=== PATIENT | female | born 1955 | race Hispanic/Latino ===

== ENCOUNTER 2017-12-15 22:59 | Emergency (ER) | payer MEDICAID ==
[~2017-12-15] VITALS: Ht 152.4 cm; Wt 85.8 kg
[2017-12-16 00:04] LABS: HEMOGLOBIN 14.5 G/DL (11.9-15.5); MCH 28.8 PG (29.0-34.0); MCV 87.5 FL (83-99); PLATELET COUNT 312 K/uL (156-360); RBC DIS.WIDTH-CV 12.4 % (11.8-14.6); RBC DIS.WIDTH-SD 39.9 % (39-53); RED BLOOD COUNT 5.03 M/uL (3.80-5.20); WHITE BLOOD COUNT 7.4 K/uL (4.1-10.2)
[2017-12-16 00:15] LABS: CHLORIDE 101 mEq/L (99-109); POTASSIUM 3.7 mEq/L (3.7-5.4); SODIUM 140 mEq/L (136-147)
[2017-12-16 00:17] LABS: GLUCOSE 94 mg/dL (70-99)
[2017-12-16 00:21] LABS: CREATININE 1.3 mg/dL (0.6-1.3)
[2017-12-16 00:22] LABS: UREA NITROGEN (BUN) 29 mg/dL (9-23)
[2017-12-16 00:23] LABS: GFR ESTIMATE (CALCULATED) 44 mL/min/
[2017-12-16 03:01] LABS: APPEARANCE CLOUDY ((CLEAR)); BILIRUBIN NEGATIVE; BLOOD SMALL; COLOR YELLOW ((YELLOW)); GLUCOSE (STRIP) NEGATIVE; KETONES NEGATIVE; LEUKOCYTES LARGE; NITRITE NEGATIVE; PROTEIN (STRIP) 30; SPECIFIC GRAVITY 1.016 (1.000-1.030); UROBILINOGEN 0.2 MG/DL (0.2-1.0)
[2017-12-16 03:28] LABS: TROP-I INTERPRETATION NEGATIVE; TROPONIN-I < 0.01 ng/mL (0.0-0.30)
[2017-12-16 03:31] LABS: BACTERIA 1+ /HPF; EPITHELIAL CELLS 2+ /HPF; HYALINE CASTS RARE /LPF; MUCUS NONE SEEN /LPF; UCUL ADDED? YES; WHITE BLOOD CELLS 40-50 /HPF (0-5)
[2017-12-16] MEDS ORDERED: TAMIFLU75 MG PO (04:18)
[2017-12-16] MEDS ORDERED: KEFLEX500 MG PO (04:18)
[2017-12-16 04:23] VITALS: BP 145/80
== END 2017-12-16 04:24 | disposition home or self-care (01) ==
LOC: EME 22:59
PROVIDERS: Emergency Medicine
DX: J10.1 Influenza due to other identified influenza virus with other respiratory manifestations (principal); N39.0 Urinary tract infection, site not specified; I10 Essential (primary) hypertension; E78.5 Hyperlipidemia, unspecified; K21.9 Gastro-esophageal reflux disease without esophagitis
CPT/HCPCS: 70450; 71046; 80048; 81003; 84484; 85027; 87077; 87086; 87186; 87502; 93005; 99281; 99284

== ENCOUNTER 2018-06-14 12:14 | Observation (INO) | payer MEDICAID ==
[~2018-06-14] VITALS: Ht 152.4 cm; Wt 86.3 kg
[~2018-06-14 12:14] MED LIST: KEFLEX500 MG PO; TAMIFLU75 MG PO
[2018-06-14 12:48] LABS: HEMATOCRIT 44.1 % (36.0-46.0); HEMOGLOBIN 14.6 G/DL (11.9-15.5); MCH 28.6 PG (29.0-34.0); MCHC 33.1 G/DL (30.0-36.0); MCV 86.3 FL (83-99); PLATELET COUNT 303 K/uL (156-360); RBC DIS.WIDTH-CV 12.8 % (11.8-14.6); RED BLOOD COUNT 5.11 M/uL (3.80-5.20); WHITE BLOOD COUNT 9.1 K/uL (4.1-10.2)
[2018-06-14 12:58] LABS: CHLORIDE 105 mEq/L (99-109)
[2018-06-14 12:59] LABS: POTASSIUM 4.1 mEq/L (3.7-5.4); SODIUM 140 mEq/L (136-147)
[2018-06-14 13:00] LABS: GLUCOSE 120 mg/dL (70-99)
[2018-06-14 13:04] LABS: CREATININE 0.9 mg/dL (0.6-1.3); GFR ESTIMATE (CALCULATED) > 59 mL/min/
[2018-06-14 13:05] LABS: UREA NITROGEN (BUN) 15 mg/dL (9-23)
[2018-06-14 13:11] LABS: TROP-I INTERPRETATION NEGATIVE; TROPONIN-I < 0.01 ng/mL (0.0-0.30)
[2018-06-14 16:44] VITALS: BP 134/67
[2018-06-14] MEDS ORDERED: NIFEDIPINE ER60 MG PO (18:45)
[2018-06-14] MEDS ORDERED: LIPITOR80 MG PO (18:46)
[2018-06-14] MEDS ORDERED: LOSARTAN POTAS100 MG PO (18:47)
[2018-06-14] MEDS ORDERED: BISOPROLOL FUMA10 MG PO (18:47)
[2018-06-14] MEDS ORDERED: ARTIFICIAL TEAR15 M1 BOTH EYES (18:49)
[2018-06-14] MEDS ORDERED: METOPROLOL PO (18:51)
[2018-06-14] MEDS ORDERED: ASPIR 8181 M1 PO (18:52)
[2018-06-14] MEDS ORDERED: PILOCARPINE HCL5 MG PO (18:53)
[2018-06-14] MEDS ORDERED: OMEPRAZOLE40 M1 PO (18:55)
[2018-06-14] MEDS ORDERED: CALCIUM 600 +1 EAC9 PO (18:56)
[2018-06-14] MEDS ORDERED: GABAPENTIN100 MG PO (18:57)
[2018-06-14 19:04] LABS: TROP-I INTERPRETATION NEGATIVE; TROPONIN-I < 0.01 ng/mL (0.0-0.30)
[2018-06-14 19:18] LABS: HDL CHOLESTEROL 51 MG/DL (Desirable>=50); LDL CHOLESTEROL 102 mg/dL (Desirable<100); NON-HDL CHOLESTEROL 130 mg/dL (Desirable<160); TOTAL CHOLESTEROL 181 mg/dL (Desirable<200); TRIGLYCERIDES 139 MG/DL (Normal: <150)
[2018-06-14 19:47] VITALS: BP 133/63
[2018-06-14 23:01] VITALS: BP 173/75
[2018-06-15 01:02] LABS: TROP-I INTERPRETATION NEGATIVE; TROPONIN-I < 0.01 ng/mL (0.0-0.30)
[2018-06-15 03:43] VITALS: BP 151/72
[2018-06-15 08:00] VITALS: BP 163/65
[2018-06-15 10:41] LABS: HEMOGLOBIN A1c (GLYCOHEMOGLOB) 6.4 % (Below 5.7)
[2018-06-15 13:08] VITALS: BP 158/76
[2018-06-15] MEDS ORDERED: Salonpas 4% Patch TD (14:38)
== END 2018-06-15 15:26 | disposition home or self-care (01) ==
LOC: EME 12:14 → EDOF 15:41 → 4SOUTH 15:41 → EDOF 15:41 → ENRESERV 15:41 → 4SOUTH 16:31
PROVIDERS: Physician Assistant
DX: R07.9 Chest pain, unspecified (principal); I10 Essential (primary) hypertension; E78.5 Hyperlipidemia, unspecified; R30.0 Dysuria; Z86.19 Personal history of other infectious and parasitic diseases; E66.9 Obesity, unspecified; Z87.891 Personal history of nicotine dependence; Z90.710 Acquired absence of both cervix and uterus; Z83.3 Family history of diabetes mellitus
CPT/HCPCS: 71046; 80048; 80061; 81003; 83036; 84484; 85027; 93005; 99281; 99284; G0378; J1650; J7030